=== PATIENT | female | born 1985 | race African-American/Black ===

== ENCOUNTER 2018-03-20 09:40 | Emergency (ER) | payer OTHER ==
[2018-03-20 09:48] VITALS: RESP 18; TEMP 97.9
[2018-03-20 11:06] LABS: Appearance,Urine Clear (Clear); Bilirubin,Urine Negative (Negative); Blood,Urine Small (Negative); Color,Urine Yellow; Glucose,Urine (UA) Negative (Negative); Ketones,Urine Negative (Negative); Leukocyte Esterase,Urine Trace (Negative); Mucus,Urine Rare /hpf; Nitrite,Urine Negative (Negative); Protein,Urine Negative (Negative); RBC,Urine 1 /hpf (0-5); Specific Gravity,Urine 1.014 (1.001-1.035); Squamous Epithelial Cell,Urine 1 /hpf (0-4); Urobilinogen,Urine <2.0 mg/dL (<2.0)
--- NOTE | 2018-03-20 11:29 | ED ---
Female Urogenital HPI - General Chief complaint: Vaginal Bleeding Stated complaint: and bleeding Time Seen by Provider: 03/20/18 09:56 Source: patient, RN notes reviewed, old records reviewed Mode of arrival: ambulatory Limitations: no limitations - History of Present Illness Initial comments: Physical is a 32-year-old female who presents emergency department today with chief complaint of lower abdominal cramping and some slight bleeding that started yesterday. She recently found she was a few weeks ago. Patient has had bleeding yesterday but it subsided this morning. She is a female. Previous miscarriage and D&C of last year. Patient reports that she has no changes in stools or appetite. No fevers. - Related Data Home Medications Medication Instructions Recorded Confirmed No Known Home Medications 03/20/18 03/20/18 Allergies Allergy/AdvReac Type Severity Reaction Status Date / Time Beef Containing Products Allergy Unknown Verified 03/20/18 10:20 chicken derived Allergy Unknown Verified 03/20/18 10:20 egg Allergy Nausea & Verified 03/20/18 10:20 Vomiting Milk Containing Products Allergy Nausea & Verified 03/20/18 10:20 Vomiting shellfish derived [Shellfish] Allergy Unknown Verified 03/20/18 10:20 Yeast Allergy Unknown Verified 03/20/18 10:20 Review of Systems ROS Statement: Those systems with pertinent positive or pertinent negative responses have been documented in the HPI. ROS Other: All systems not noted in ROS Statement are negative. Past Medical History Past Medical History: No Reported History History of Any Multi-Drug Resistant Organisms: None Reported Additional Past Surgical History / Comment(s): right hand surgery, D&C 2005 Past Psychological History: No Psychological Hx Reported Smoking Status: Never smoker Past Alcohol Use History: None Reported Past Drug Use History: None Reported General Exam - General Exam Comments Initial Comments: This is a 32-year-old female. Alert and oriented. Patient appears in no significant distress. Limitations: no limitations General appearance: alert, in no apparent distress Head exam: Present: atraumatic, normocephalic, normal inspection Eye exam: Present: normal appearance, PERRL, EOMI. Absent: scleral icterus, conjunctival injection, periorbital swelling ENT exam: Present: normal exam, mucous membranes moist Neck exam: Present: normal inspection. Absent: tenderness, meningismus, lymphadenopathy Respiratory exam: Present: normal lung sounds bilaterally. Absent: respiratory distress, wheezes, rales, rhonchi, stridor Cardiovascular Exam: Present: regular rate, normal rhythm, normal heart sounds. Absent: systolic murmur, diastolic murmur, rubs, gallop, clicks GI/Abdominal exam: Present: soft, normal bowel sounds. Absent: distended, tenderness, guarding, rebound, rigid External exam: Present: normal external exam Speculum exam: Present: normal speculum exam. Absent: cervical discharge, vaginal bleeding, foreign body By manual exam: Present: normal by manual exam. Absent: cervical motion tenderness, adnexal tenderness, adnexal mass, uterine tenderness Extremities exam: Present: normal inspection, full ROM, normal capillary refill. Absent: tenderness, pedal edema, joint swelling, calf tenderness Back exam: Present: normal inspection Neurological exam: Present: alert, oriented X3, CN II-XII intact Course Vital Signs 03/20/18 03/20/18 09:44 11:40 Temperature 97.9 F Pulse Rate 97 69 Respiratory 18 18 Rate Blood Pressure 105/65 106/72 O2 Sat by Pulse 100 100 Oximetry Medical Decision Making - Medical Decision Making Patient is a 32-year-old female who presents today with concerns for vaginal bleeding. Recently, she was . She is a female. At this time patient's a positive blood type. HCG level is 148,867. Ultrasound shows a viable IUP measuring 8 weeks and 3 days. At this time her pelvic exam shows no bleeding. There is a scant amount of brown discharge from previous old bleeding. There is no signs of subchorionic bleed on ultrasound. Since this can become an early with occasional spotting. Patient will be advised him. With primary care provider. All questions answered return parameters were discussed. Discussed repeating hCG level in 2 days. - Lab Data Lab Results 03/20/18 03/20/18 03/20/18 Range/Units 10:35 10:35 10:35 HCG, Quant 217562.0 mIU/mL Urine Color Yellow Urine Appearance Clear (Clear) Urine pH 6.0 (5.0-8.0) Ur Specific [place] 1.014 (1.001-1.035) Urine Protein Negative (Negative) Urine Glucose (UA) Negative (Negative) Urine Ketones Negative (Negative) Urine Blood Small H (Negative) Urine Nitrite Negative (Negative) Urine Bilirubin Negative (Negative) Urine Urobilinogen <2.0 (<2.0) mg/dL Ur Leukocyte Esterase Trace H (Negative) Urine RBC 1 (0-5) /hpf Urine WBC 1 (0-5) /hpf Ur Squamous Epith Cells 1 (0-4) /hpf Urine Mucus Rare H (None) /hpf Blood Type A Positive Blood Type Recheck No - Radiology Data Radiology results: report reviewed Single live intrauterine gestations confirm mean crown-rump length is 1.9 cm corresponding to 8 weeks and 3-day-old fetus. Disposition Clinical Impression: Threatened miscarriage Disposition: HOME SELF-CARE Condition: Good Instructions: Threatened Miscarriage (ED) Additional Instructions: Patient advised to follow-up with [facility] once appointment. HCG at this time is 148,672. Patient should return to the emergency department if any alarming signs or symptoms occur. Repeat her hCG level in 2 days. Is patient prescribed a controlled substance at d/c from ED?: No Referrals: None,Stated [Primary Care Provider] - 1-2 days Ammon Oliveira DO [Doctor of Osteopathic Medicine] - 1-2 days Time of Disposition: 12:39
--- NOTE | 2018-03-20 11:41 | US ---
EXAMINATION TYPE: Transabdominal DATE OF EXAM: 06/26/17 COMPARISON: NONE CLINICAL HISTORY: Pain. EXAM PERFORMED: EXAM MEASUREMENTS: GESTATIONAL AGE / DATING Physician Established: Not yet established Dates by LMP: (9 weeks/0 days) EDC: 10/23/17 Dates by First Scan: No previous at this facility Dates by Current Scan for: (8 weeks/3 days) EDC: 10/27/17 MATERNAL ANATOMY Uterus: 9.6 x 6.3 x 6.8cm Right Ovary: 2.0 x 1.4 x 1.4cm Left Ovary: 5.7 x 4.0 x 4.3cm Post CDS / Adnexa: wnl Presence of free fluid: no Presence of subchorionic bleed: no GESTATION / SURVEY CRL: 1.9 ( 8 weeks/3 days) Yolk Sac (normal less than 6mm): 3mm Heart Rate: 178 bpm Rhythm: Normal IUP: Viable IUP Date of LMP: 01/16/18 Beta HcG (if available): Not available at this time Single live intrauterine gestation is seen as gestational sac, yolk sac, pole are identified. N o free fluid is seen in pelvic cul-de-sac. Both ovaries are identified, there is asymmetric enlargement of left ovary versus right ovary. There is 4.7 cm thin-walled cyst with thin septation the incidentally seen in the left ovary. No suspicious extraovarian adnexal masses are present. IMPRESSION: Single live intrauterine gestation is confirmed, mean crown-rump length is 1.9 cm corresponding to 8 week 3 day old fetus.
[2018-03-20 12:50] VITALS: BP 125/85; PULSE 80
[2018-03-21 11:11] LABS: Chlamydia trachomatis rRNA Not detected (Not detected); Neisseria gonorrhoeae rRNA Not detected (Not detected)
== END 2018-03-20 12:49 | disposition home or self-care (01) ==
LOC: EC 09:40
DX: O20.0 Threatened abortion (principal); Z98.890 Other specified postprocedural states; Z3A.08 8 weeks gestation of pregnancy; Z91.018 Allergy to other foods; Z91.012 Allergy to eggs; Z91.011 Allergy to milk products; Z91.013 Allergy to seafood
CPT/HCPCS: 36415; 76801; 81001; 84702; 86900; 86901; 87070; 87205; 87491; 87591; 87808; 99284

== ENCOUNTER → 2018-03-22 | Outpatient (CLI) | payer SELFPAY | LOC: LABWHC1 15:04 | PROVIDERS: ATTEND Physician Assistant Medical | DX: O20.0 Threatened abortion (principal) | CPT/HCPCS: 36415; 84702 ==